=== PATIENT | female | born 1965 | race Caucasian/White ===

== ENCOUNTER 2018-04-17 20:15 | Emergency (ER) | payer SELFPAY ==
[2018-04-17] MEDS ORDERED: Ketorolac Tromethamine 30 MG/ML VIAL ONE (22:12)
== END 2018-04-17 22:40 | disposition home or self-care (01) ==
LOC: ERS 20:15
DX: M54.5 Low back pain (principal)
CPT/HCPCS: 96372; J1885

== ENCOUNTER 2019-10-09 14:38 | Emergency (ER) | payer SELFPAY ==
[2019-10-09] MEDS ORDERED: HYDROcodone/Acetaminophen 10/325 mg Tablet ONE (15:59)
== END 2019-10-09 16:45 | disposition home or self-care (01) ==
LOC: ERS 14:38
DX: K02.9 Dental caries, unspecified (principal)
CPT/HCPCS: 99282

== ENCOUNTER 2020-04-13 09:10 | Outpatient (CLI) | payer OTHER ==
--- NOTE | 2020-04-13 09:53 | ULT ---
ULTRASOUND ABDOMEN LIMITED: (RIGHT UPPER QUADRANT) DATE: 04/13/2020 HISTORY: 55-year-old female with right upper quadrant abdominal pain. FINDINGS: There is suboptimal visualization of abdominal organs, especially the right lobe of the liver, due to body habitus. Gallbladder: Normal wall thickness. No gallstones or sludge identified. No pericholecystic fluid. Liver: Normal parenchymal echogenicity, were visible. Right kidney: No hydronephrosis. Pancreas: Visualized, with no gross sonographic abnormality identified (although ultrasound is relati vely insensitive for the detection of pancreatic pathology compared to CT and MRI.). Tail obscured by shadowing from bowel gas. Common duct caliber: 3 mm. IMPRESSION: No pathology identified
== END 2020-04-13 09:11 | disposition home or self-care (01) ==
LOC: BICULT 09:10
PROVIDERS: ATTEND Internal Medicine Gastroenterology
DX: R10.13 Epigastric pain (principal); U07.1 COVID-19; R07.9 Chest pain, unspecified; R06.00 Dyspnea, unspecified; R13.19 Other dysphagia; R10.30 Lower abdominal pain, unspecified
CPT/HCPCS: 76705

== ENCOUNTER 2023-09-25 08:11 | Outpatient (CLI) | payer OTHER | END 2023-09-25 08:12 | disposition home or self-care (01) | LOC: BICCT 08:11 | PROVIDERS: ATTEND Neurological Surgery | DX: M43.16 Spondylolisthesis, lumbar region (principal); M47.817 Spondylosis without myelopathy or radiculopathy, lumbosacral region; M48.061 Spinal stenosis, lumbar region without neurogenic claudication | CPT/HCPCS: 72131 ==

== ENCOUNTER 2023-10-31 05:29 | Day surgery (SDC) | payer OTHER ==
[2023-10-24 08:52] VITALS: BMI 39.7
[2023-10-31] MEDS ORDERED: EPINEPHrine 1 MG/ML VIAL ONE (06:10)
[2023-10-31] MEDS ORDERED: Thrombin 5000 UNITS/5 ML VIAL ONE (06:11)
[2023-10-31] MEDS ORDERED: Bupivacaine PF 0.5% 30 ML VIAL ONE (06:11)
[2023-10-31] MEDS ORDERED: Rocuronium Bromide 10 MG/ML (10ML VIAL) ONE (06:21)
[2023-10-31] MEDS ORDERED: Lidocaine 1% PF 5 ML VIAL ONE (06:21)
[2023-10-31] MEDS ORDERED: Fentanyl 250 MCG/5 ML VIAL ONE (06:21)
[2023-10-31] MEDS ORDERED: PROPOFOL 20 ML ONE (06:21)
[2023-10-31] MEDS ORDERED: Sodium Chloride 0.9% 100 ML ONE ×2 (06:42→13:27)
[2023-10-31] MEDS ORDERED: CEFAZOLIN 2 GM VIAL ONE ×2 (06:42→13:27)
[2023-10-31] MEDS ORDERED: Midazolam HCl 2 mg/2 ml Vial ONE (06:55)
[2023-10-31] MEDS ORDERED: Ondansetron PF 4 MG/2 ML Vial ONE ×2 (07:30→10:16)
[2023-10-31] MEDS ORDERED: Ketorolac Tromethamine 30 MG (1 mL) VIAL ONE (07:30)
[2023-10-31] MEDS ORDERED: Dexamethasone 20 MG/5 ML VIAL ONE (07:30)
[2023-10-31] MEDS ORDERED: Morphine Sulfate 2 MG/ML SYRINGE SLOW IVP PRN (09:03)
[2023-10-31] MEDS ORDERED: HYDROmorphone 2 MG/ML VIAL SLOW IVP PRN (09:03)
[2023-10-31] MEDS ORDERED: PACU-Morphine 4MG/ML VIAL SLOW IVP PRN (09:03)
[2023-10-31] MEDS ORDERED: Ondansetron HCl/PF 4 MG/2 ML Vial IVP PRN (09:03)
[2023-10-31] MEDS ORDERED: Promethazine HCl 25 MG/ML VIAL IM PRN (09:03)
[2023-10-31] MEDS ORDERED: SUGAMMADEX SODIUM 200 MG/2 ML VIAL ONE (09:23)
[2023-10-31] MEDS ORDERED: fentaNYL PF 100 MCG/2 ML SYRINGE ONE ×2 (10:11→10:29)
[2023-10-31] MEDS ORDERED: HYDROmorphone 0.5 MG/0.5 ML SYRINGE ONE (10:14)
[2023-10-31] MEDS ORDERED: Promethazine 25 MG TAB ONE (11:43)
[2023-10-31] MEDS ORDERED: HYDROcodone/Acetaminophen 5/325 mg Tablet ONE (16:25)
== END 2023-10-31 17:22 | disposition home or self-care (01) ==
LOC: SDC 05:29
PROVIDERS: ATTEND Neurological Surgery
PROC: 0SG30K1 Fusion of Lumbosacral Joint with Nonautologous Tissue Substitute, Posterior Approach, Posterior Column, Open Approach (ICD-10-PCS; principal; 2023-10-31)
DX: M43.16 Spondylolisthesis, lumbar region (principal); M54.16 Radiculopathy, lumbar region; G89.29 Other chronic pain; M19.90 Unspecified osteoarthritis, unspecified site; Z98.890 Other specified postprocedural states; Z79.899 Other long term (current) drug therapy
CPT/HCPCS: C1713; C1889; J0171; J1100; J1170; J1885; J2250; J2405; J2704; J3010; J3490; Q0169; S0020